=== PATIENT | male | born 1960 | race African-American/Black ===

== ENCOUNTER 2018-08-29 16:18 | Emergency (ER) | payer OTHER ==
[~2018-08-29] VITALS: Ht 188 cm; Wt 94.1 kg
[2018-08-29] MEDS ORDERED: KEFLEX500 M1 PO (19:40)
[2018-08-29 19:49] VITALS: BP 150/86
== END 2018-08-29 20:02 | DRG 566 ==
LOC: ED 16:18
PROC: 0HQNXZZ Repair Left Foot Skin, External Approach (ICD-10-PCS; principal; 2018-08-29)
DX: S96.922A Laceration of unspecified muscle and tendon at ankle and foot level, left foot, initial encounter (principal); I10 Essential (primary) hypertension; W01.198A Fall on same level from slipping, tripping and stumbling with subsequent striking against other object, initial encounter; Y93.89 Activity, other specified; Y92.89 Other specified places as the place of occurrence of the external cause; Y99.8 Other external cause status